=== PATIENT | female | born 1985 | race Caucasian/White ===

== ENCOUNTER 2019-08-08 09:29 | Emergency (ER) | payer OTHER, MEDICAID ==
[~2019-08-08] VITALS: Ht 160 cm; Wt 59.0 kg
[~2019-08-08 09:29] MED LIST: ATIVAN0.5 MG PO; BACTRIM DS TAB1 EACH PO; BACTROBAN15 GM TOP; CLEOCIN HCL150 MG PO; NAPROSYN500 MG PO; NOHOMEMEDICATIONS; NORCO 5-325 TA1 EACH PO; PENICILLIN VK250 MG PO; TRAMADOL 50 MG50 MG PO; ZPAK PO
[2019-08-08 09:56] LABS: URINE BILIRUBIN NEGATIVE (Negative); URINE BLOOD TRACE (Negative); URINE CLARITY CLEAR; URINE COLOR YELLOW; URINE GLUCOSE-RANDOM NEGATIVE (Negative); URINE KETONES NEGATIVE (Negative); URINE LEUKOCYTES-REFLEX NEGATIVE (Negative); URINE NITRITE-REFLEX NEGATIVE (Negative); URINE PROTEIN NEGATIVE (Negative); URINE SPECIFIC GRAVITY >= 1.030 (1.005-1.030); URINE UROBILINOGEN 0.2 E.U./dl (0.2-1.0)
[2019-08-08 09:58] LABS: ABSOLUTE BASOPHILS 0.1 thou/uL (0.0-0.2); ABSOLUTE EOSINOPHILS 0.5 thou/uL (0.0-0.7); ABSOLUTE MONOCYTES 0.7 thou/uL (0.0-1.2); BASOPHILS 0.8 %; EOSINOPHILS 4.7 %; HEMATOCRIT 40.2 % (37.0-47.0); HEMOGLOBIN 13.8 gm/dL (12.0-15.0); LYMPHOCYTES 19.1 %; MCH 34.2 pg (26.0-34.0); MCHC 34.4 g/dL (28.0-37.0); MCV 99.2 fL (80.0-100.0); MONOCYTES 7.3 %; MPV 7.4 fl. (7.2-11.1); NUCLEATED RBCS 0 /100WBC; PLATELET COUNT* 220 thou/uL (150-400); POLYS 68.1 %; RBC 4.05 mil/uL (4.20-5.00); RDW-CV 12.5 % (10.5-14.5); WBC 10.2 thou/uL (4.0-11.0)
[2019-08-08 10:10] LABS: ANION GAP 8 mmol/L (7-16); BUN 17 mg/dL (7-18); CALCIUM 8.2 mg/dL (8.5-10.1); CHLORIDE 105 mmol/L (98-107); CO2 24 mmol/L (21-32); CREATININE 0.8 mg/dL (0.6-1.3); GLUCOSE 101 mg/dL (70-99); POTASSIUM 4.5 mmol/L (3.5-5.1); SODIUM 137 mmol/L (136-145)
[2019-08-08 10:12] LABS: AMP/METHAMP Negative (Negative); BARBITURATES Negative (Negative); BENZODIAZEPINES Negative (Negative); COCAINE Negative (Negative); METHADONE Negative (Negative); OPIATES POSITIVE (Negative); PCP Negative (Negative); THC POSITIVE (Negative)
[2019-08-08 10:26] LABS: ALBUMIN 3.9 g/dL (3.4-5.0); ALKALINE PHOSPHATASE 57 U/L (46-116); SGOT 29 U/L (15-37); SGPT 40 U/L (30-65); TOTAL BILIRUBIN 0.2 mg/dL (<0.1-1.0); TOTAL PROTEIN 6.9 g/dL (6.4-8.2); TROPONIN-I LEVEL <0.06 ng/mL (<0.06)
[2019-08-08] MEDS ORDERED: TRAMADOL 50 MG50 MG PO (10:41)
[2019-08-08 11:00] VITALS: BP 109/61
--- NOTE | 2019-08-08 15:04 | EKG ---
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
== END 2019-08-08 11:01 | disposition home or self-care (01) ==
LOC: M.ERS 09:29
PROVIDERS: Emergency Medicine
DX: R42 Dizziness and giddiness (principal); F17.210 Nicotine dependence, cigarettes, uncomplicated; Z88.2 Allergy status to sulfonamides; Z98.890 Other specified postprocedural states; Z90.49 Acquired absence of other specified parts of digestive tract; Z79.899 Other long term (current) drug therapy

== ENCOUNTER 2020-12-28 18:37 | Emergency (ER) | payer OTHER, MEDICAID ==
[~2020-12-28] VITALS: Ht 160 cm; Wt 54.4 kg
[2020-12-28] MEDS ORDERED: CYMBALTA20 MG PO (18:54)
[2020-12-28] MEDS ORDERED: AMITRIPTYLINE H50 M2 PO (18:54)
[2020-12-28] MEDS ORDERED: NEURONTIN 300M300 M2 PO (18:54)
[2020-12-28] MEDS ORDERED: LIDOCAINE VISC100 ML SWISH&SPIT (19:25)
[2020-12-28] MEDS ORDERED: HYDROCODON-ACE1 EAC7 PO (19:25)
[2020-12-28] MEDS ORDERED: AMOXIL 875 MG875 M1 PO (19:25)
[2020-12-28 19:40] VITALS: BP 120/69
== END 2020-12-28 19:40 | disposition home or self-care (01) ==
LOC: M.ERS 18:37
DX: K04.7 Periapical abscess without sinus (principal); F17.210 Nicotine dependence, cigarettes, uncomplicated; Z88.2 Allergy status to sulfonamides; Z90.49 Acquired absence of other specified parts of digestive tract; Z98.890 Other specified postprocedural states

== ENCOUNTER 2021-02-12 17:37 | Emergency (ER) | payer OTHER, MEDICAID ==
[~2021-02-12] VITALS: Ht 160 cm; Wt 56.7 kg
[~2021-02-12 17:37] MED LIST changes: +AMITRIPTYLINE H50 M2 PO; +AMOXIL 875 MG875 M1 PO; +CYMBALTA20 MG PO; +HYDROCODON-ACE1 EAC7 PO; +LIDOCAINE VISC100 ML SWISH&SPIT; +NEURONTIN 300M300 M2 PO
[2021-02-12] MEDS ORDERED: CYMBALTA20 MG PO (17:48)
[2021-02-12] MEDS ORDERED: DOXYCYCLINE 10100 MG PO (19:00)
[2021-02-12 19:49] VITALS: BP 144/57
== END 2021-02-12 19:49 | disposition home or self-care (01) ==
LOC: M.ERS 17:37
DX: A59.01 Trichomonal vulvovaginitis (principal); B07.0 Plantar wart; F17.210 Nicotine dependence, cigarettes, uncomplicated; Z98.890 Other specified postprocedural states; Z90.49 Acquired absence of other specified parts of digestive tract; Z79.2 Long term (current) use of antibiotics; Z79.899 Other long term (current) drug therapy; Z88.2 Allergy status to sulfonamides

== ENCOUNTER 2021-04-07 16:48 | Emergency (ER) | payer OTHER, MEDICAID ==
[~2021-04-07] VITALS: Ht 160 cm; Wt 52.2 kg
[~2021-04-07 16:48] MED LIST changes: +DOXYCYCLINE 10100 MG PO
[2021-04-07 16:51] VITALS: BP 102/75
--- NOTE | 2021-04-08 12:47 | EKG ---
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 04/08/21 1247 1653 1653 Ramu Mercado MD, [facility] /EPI
== END 2021-04-07 17:27 | disposition left against medical advice (07) ==
LOC: M.ERS 16:48
DX: Z53.21 Procedure and treatment not carried out due to patient leaving prior to being seen by health care provider (principal)